=== PATIENT | male | born 2000 | race Caucasian/White ===

== ENCOUNTER → 2020-04-09 | Outpatient (CLI) | payer OTHER ==
--- NOTE | 2020-04-09 09:39 | Diagnostic Imaging Report ---
PROCEDURE: US Renal Bilateral. TECHNIQUE: Multiple Real-time grayscale images were obtained over the kidneys in various projections bilaterally. INDICATION: Chronic kidney disease, stage III. FINDINGS: The right kidney measures 9.8 x 5.5 x 4.8 cm and the left kidney measures 10.8 x 5.1 x 4.6 cm. The cortical thickness and echogenicity are normal bilaterally. No calculus or hydronephrosis is identified. The partially filled urinary bladder demonstrates bilateral ureteral jets. IMPRESSION: Unremarkable renal ultrasound. Dictated by: Dictated on workstation # [id number]
== END ==
LOC: RAD 08:40
PROVIDERS: ATTEND Internal Medicine Nephrology
DX: N18.3 Chronic kidney disease, stage 3 (moderate) (principal); D50.8 Other iron deficiency anemias; K50.90 Crohn's disease, unspecified, without complications
CPT/HCPCS: 76770

== ENCOUNTER → 2020-04-10 | Outpatient (CLI) | payer OTHER ==
[2020-04-10 16:56] LABS: BASOPHILS % (AUTO) 1 % (0-10); EOSINOPHILS # (AUTO) 0.3 10^3/uL (0.0-0.3); EOSINOPHILS % (AUTO) 3 % (0-10); HEMATOCRIT 48 % (40-54); HEMOGLOBIN 16.3 G/DL (13.3-17.7); LYMPHOCYTES # (AUTO) 2.4 X 10^3 (1.0-4.0); LYMPHOCYTES % (AUTO) 30 % (12-44); MEAN CORPUSCULAR HEMOGLOBIN 31 PG (25-34); MEAN CORPUSCULAR HGB CONC 34 G/DL (32-36); MEAN CORPUSCULAR VOLUME 91 FL (80-99); MEAN PLATELET VOLUME 10.9 FL (7.4-10.4); MONOCYTES # (AUTO) 0.7 X 10^3 (0.0-1.0); MONOCYTES % (AUTO) 9 % (0-12); NEUTROPHILS # (AUTO) 4.8 X 10^3 (1.8-7.8); NEUTROPHILS % (AUTO) 58 % (42-75); PLATELET COUNT 238 10^3/uL (130-400); RED CELL DISTRIBUTION WIDTH 12.8 % (10.0-14.5); WHITE BLOOD COUNT 8.2 10^3/uL (4.3-11.0)
[2020-04-10 17:16] LABS: URINE CREATININE FOR RATIO 102 MG/DL (30-125); URINE PROTEIN FOR RATIO ONLY < 6 MG/DL (6-12)
[2020-04-10 17:18] LABS: ALBUMIN 4.5 GM/DL (3.2-4.5); BUN/CREATININE RATIO 6; CALCIUM 9.4 MG/DL (8.5-10.1); CARBON DIOXIDE 27 MMOL/L (21-32); CHLORIDE 106 MMOL/L (98-107); CREATININE SERUM 1.22 MG/DL (0.60-1.30); GFR ESTIMATED > 60; GLUCOSE 77 MG/DL (70-105); PHOSPHORUS 4.2 MG/DL (2.3-4.7); POTASSIUM 4.2 MMOL/L (3.6-5.0); SODIUM 140 MMOL/L (135-145); URIC ACID 4.4 MG/DL (2.6-7.2)
== END ==
LOC: LAB 16:35
PROVIDERS: ATTEND Internal Medicine Nephrology
DX: N18.3 Chronic kidney disease, stage 3 (moderate) (principal); K50.90 Crohn's disease, unspecified, without complications; D50.9 Iron deficiency anemia, unspecified; D63.1 Anemia in chronic kidney disease
CPT/HCPCS: 36415; 80069; 82306; 82570; 83970; 84156; 84550; 85025

== ENCOUNTER 2021-07-23 19:14 | Day surgery (SDC) | payer OTHER ==
[~2021-07-23] VITALS: Ht 208.3 cm; Wt 97.6 kg
--- OUTSIDE RECORDS SUMMARY | 2021-07-23 19:19 | XMS REPORT | Clinical Summary ---
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 Active cyanocobalamin (VITAMIN TAKE 1 TABLET 11 B-12) 100 MCG tablet BY MOUTH ONCE 9 DAILY FOR 90 DAYS Active citalopram (CELEXA) 20 mg TAKE 1 TABLET 1 08/23 tablet BY MOUTH ONCE 9 DAILY IN THE MORNING Active zolpidem (AMBIEN) 5 MG Take 5 mg by 1 09/05/ 01 tablet mouth 9 nightly. Active cetirizine 10 mg cap Take by 0 mouth. Active fluticasone propionate Use 1 spray 0 (FLONASE) 50 in each mcg/actuation nasal spray nostril daily. Active inFLIXimab-abda Infuse into a 0 (RENFLEXIS) 100 mg venous SolRIndications: 5 weeks catheter. 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 Trunk and extremities The patient is reassured regarding the benign appearance of the lesion(s). If any changes should occur in the futu re, he is encouraged to have the lesion(s) rechecked at our office. Solar lentigo 09/20/2020 Overview: Formatting of this note might be differ ent from the original. Trunk and extremities The patient is reassured regarding the benign appearance of the lesion(s). If any changes should occur in the futu re, he is encouraged to have the lesion(s) rechecked at our office. 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 Problem Established Course Chronic Intervention Observation Physician Global Assessment Mild Cutaneous manifestations of photo-aging are present on the photo-exposed areas of the skin, distal BUEs, superio r chest/lateral neck, face. The presence of these changes to the sk in is due to chronic UVA and UVB exposure over years. These skin change s and the exposure to UV radiation which precipitated them confer a much h igher risk for non-melanoma and melanoma skin malignancies. The physic al manifestations mentioned above and in the exam portion of this note re present signs of a high, chronic dose of ultraviolet radiation, which co nfers significant risk for NMSC. Given this risk, I briefly discussed th e need for this patient to be vigilant in monitoring their skin for c hanging lesions and I have provided written education materials on skin can cer risk as well as recommendations on behavioral changes to diminish risk in spite of the past, high, chronic UV dose. These changes include sun ab idance/sun screen use as well as skin self monitoring. I have counseled the patient extensively on the increased risk for cutaneous malignanci es. This risk has informed my recommendatio ns on the frequency of total body skin exams by me for the purposes of sk in malignancy screening. Acne 09/20/2020 Last Assessment & Plan: Formatting of this note might be differ ent from the original. Face Back Moderate Offered benzaclin, tret Patient unbothered, will continue to mo nitor closely infliximab can precipitate folliculitis , on ddx Skin cancer screening 09/20/2019 Overview: Formatting of this note might be differ ent from the original. Given skin type and sun exposure on his tory and exam, increased risk for NMSC and MM. - sun protection discussed, detailed in structions provided - self skin checks, detailed instructio ns provided Multiple benign nevi 09/20/2019 Overview: Formatting of this note might be differ ent from the original. Trunk and extremities The patient is reassured regarding the benign appearance of the lesion(s). If any changes should occur in the futu re, he is encouraged to have the lesion(s) rechecked at our office. Stria 09/20/2019 Last Assessment & Plan: Formatting of this note might be differ ent from the original. Back reassurance Long-term use of high-risk medication 09/20/2019 Overview: Formatting of this note might be differ ent from the original. infliximab crohns 2017 L ast Assessment & Plan: Formatting of this note might be differ ent from the original. Complicates skin exam Increased r/o nmsc and MM Discussed at length with patient, encou raged self skin exams Crohn's colitis 09/20/2019 Overview: Formatting of this note might be differ ent from the original. On infliximab 2017 Doing well Treated by Dr. Sanchez Encounters Care Team Description Date Type Specialty Suyapa Elizabeth RN 07/01/2021 Telephone Dermatology from Last 3 Months Social History Date Tobacco Use Types Packs/Day Years Used Passive Smoke Exposure - Never Smoker Comments Alcohol Use Standard Drinks/Week No 0 (1 standard drink = 0.6 o z pure alcohol) Sex Assigned at Date Recorded Male 09/20/2019 11:16 AM CDT Last Filed Vital Signs Reading Time Taken Comments Vital Sign 123/80 09/20/2020 8:51 AM CDT Blood Pressure 97 09/20/2020 8:51 AM CDT Pulse 36.4 C (97.5 F) 09/20/2020 8:51 AM CDT Temperature 17 11/22/2016 9:37 PM PSYCHOLOGY INTERN Respiratory Rate 100% 11/22/2016 7:30 PM PSYCHOLOGY INTERN Oxygen Saturation - - Inhaled Oxygen Concentration 88.5 kg (195 lb) 09/20/2020 8:51 AM CDT Weight 188 cm (6' 2") 09/20/2019 9:48 AM CDT Height 25.04 09/20/2019 9:48 AM CDT Body Mass Index Plan of Treatment Care Team Description Date Type Specialty Tenzin Torres MD [address] [address] [phone] 09/23/2021 Office Visit Dermatology Health Maintenance Due Date Last Done Comments Td/Tdap# 1999 HPV Vaccine (1 - Male 2010 2-dose series) COVID-19 Vaccine (1) 2011 Influenza Vaccine (#1) 2021 07/25/2020, 08/18/2019, 08/18/2019, Additional history exists Pneumococcal Vaccine: 08/02/2024 08/02/2019, Pediatrics (0 to 5 Years) 03/25/2019, and At-Risk Patients (6 01/21/2001, to 64 Years) (3 of 4 - Additional PPSV23) history exists MCV4 Vaccine Aged Out No longer eligible based on patient's age to complete this topic Results Not on filefrom Last 3 Months Insurance Type Payer Benefit Subscriber ID Effective Phone Address Plan / Dates Group OTHER GOVERNMENT [id number] 2017-P [facility] [address] am[place] (Home) [place], [place] [address] Issa Salgado Personal/F Self 2000 [address]Home) [place], [place] [address] Advance Directives For more information, please contact: [phone] 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
--- OUTSIDE RECORDS SUMMARY | 2021-07-23 19:19 | XMS REPORT | Encounter Summary ---
Author Author [facility] Organization [facility] Address Unknown Phone Unavailable Care Team Providers Care Scrap Preparer Name Role Phone Joel Matias MD PCP Encounter Details Care Team Description Date Type Department Suyapa Elizabeth RN 07/01/2021 Telephone [facility] [address] [place] [address] Social History Date Tobacco Use Types Packs/Day Years Used Passive Smoke Exposure - Never Smoker Comments Alcohol Use Standard Drinks/Week No 0 (1 standard drink = 0.6 o z pure alcohol) Sex Assigned at Date Recorded Male 09/20/2019 11:16 AM CDT documented as of this encounter Miscellaneous Notes * Telephone Encounter - Suyapa Elizabeth RN - 07/01/2021 9:30 AM CDT Patient's mother LVM after hours over the weekend. Reporting patient has a lesio n on LUE that is red and has developed a "hard knot". States she believes lesion may be a spider bite. Patient's mother verbalizes redness is not growing outwar ds. Notified patient's mother lesion would need to be assessed in clinic by Dr. Torres or Tabitha. Discussed next available with Tabitha. Patient's mother states she does not want to wait. Discussed following up with PCP or convenient care. P michelle't billy verbalized understanding. documented in this encounter Plan of Treatment Care Team Description Date Type Specialty Tenzin Torres MD [address] [place] [address] 09/23/2021 Office Visit Dermatology documented as of this encounter Visit Diagnoses Not on filedocumented in this encounter
--- OUTSIDE RECORDS SUMMARY | 2021-07-23 19:20 | XMS REPORT | Clinical Summary ---
Author Author [facility] Organization [facility] Address Unknown Phone Unavailable Care Team Providers Care Maintenance Man Name Role Phone Sundar Sanchez PCP Source Comments Some departments are not documenting in the electronic medical record. If you d o not see the information that you expected, contact Release of Information in [facility] [employer] Information Management department at [phone] for further assistan ce in locating additional records.[facility] Allergies No Known Active Allergies Medications End Date Status Medication Sig Dispensed Refills Start Date Active citalopram (CELEXA) 20 mg Take 20 mg by 0 05/0 tablet mouth every 0 morning. Active zolpidem (AMBIEN) 5 mg Take 5 mg by 0 03/29/ 02 tablet mouth at 0 bedtime daily. Active inFLIXimab (REMICADE) 100 Administer 0 11/24 mg/10 mL injection 700 mg 7 through vein. Active cetirizine (ZYRTEC) 1 Take 10 mg by 0 mg/mL oral solution mouth as Needed. Active diphenhydrAMINE Take 25 mg by 0 (BENADRYL) 25 mg capsule mouth every 4 hours as needed. Active cholecalciferol (vitamin Take one 6 capsule 0 0 D3) (OPTIMAL D3) 50,000 capsule by 0 units capsule mouth every 7 days. Active pseudoephedrine (SUDAFED) Take 60 mg by 0 30 mg tablet mouth every 4 hours as needed for Congestion. Active ergocalciferol (vitamin Take one 6 capsule 0 D2) (VITAMIN D) 1,250 mcg capsule by 1 (50,000 unit) capsule mouth every 7 days. Active cholecalciferol (VITAMIN Take one 90 tablet 3 0 D3) 50 mcg (2,000 unit) tablet by 1 tablet mouth daily. Active Problems Problem Noted Date Healthcare maintenance 08/08/2020 Medication management 08/08/2020 Agitation 08/08/2020 Immunization counseling 08/08/2020 Crohn's disease of small intestine without complicati on 04/27/2020 Encounters Care Team Description Date Type Specialty Todd Crowley MD Crohn's disease of small intestine witho ut complication (HCC) (Primary Dx) 07/04/2021 Infusion Infusion 07/04/2021 Travel Todd Crowley MD Results (Labs) 06/12/2021 Telephone Gastroenterology Todd Crowley MD 06/05/2021 Hospital Lab Encounter Todd Crowley MD Crohn's disease of small intestine witho ut complication (HCC) (Primary Dx); Health care maintenance; Medication management; Personal history of immunosupression therapy 06/05/2021 Office Visit Gastroenterology 06/05/2021 Travel Todd Crowley MD Crohn's disease of small intestine witho ut complication (HCC) (Primary Dx) 05/30/2021 Infusion Infusion 05/30/2021 Travel Tracie Foreman RN 05/20/2021 Orders Only Gastroenterology Todd Crowley MD Crohn's disease of small intestine witho ut complication (HCC) (Primary Dx) 04/25/2021 Infusion Infusion 04/25/2021 Travel from Last 3 Months Surgical History Surgery Date Site/Laterality Comments COLONOSCOPY COLONOSCOPY 11/09/2020 N/A Colonoscopy per formed by Todd Crowley MD at [place] [address] OR Medical History Medical History Date Comments Crohn's disease (HCC) Family History Medical History Relation Name Comments Hypertension Father Cancer-Colon Maternal Grandfather Heart Disease Maternal Grandfather Cancer-Colon Maternal Grandmother Diabetes Mother Hypertension Mother Heart Disease Paternal Grandfather Stroke Paternal Grandfather Cancer Paternal Grandmother Relation Name Status Comments Father Alive Maternal Grandfather Maternal Grandmother Mother Alive Paternal Aunt Paternal Grandfather Paternal Grandmother Alive Paternal Uncle Alive Social History Date Tobacco Use Types Packs/Day Years Used Never Smoker Smokeless Tobacco: Never Used Comments Alcohol Use Standard Drinks/Week socially Yes 0 (1 standard drink = 0.6 o z pure alcohol) Alcohol Habits Answer Date Recorded How often do you have a drink containing alcohol? Never 04/25/2020 How many drinks containing alcohol do you have on No t asked a typical day when you are drinking? How often do you have six or more drinks on one Not asked occasion? 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 Last Filed Vital Signs Reading Time Taken Comments Vital Sign 120/66 07/04/2021 3:15 PM CDT Blood Pressure 89 07/04/2021 3:15 PM CDT Pulse 36.4 C (97.5 F) 07/04/2021 1:14 PM CDT Temperature 16 07/04/2021 1:14 PM CDT Respiratory Rate 99% 07/04/2021 1:14 PM CDT Oxygen Saturation - - Inhaled Oxygen Concentration 93.4 kg (206 lb) 07/04/2021 1:14 PM CDT Weight 188 cm (6' 2") 07/04/2021 1:14 PM CDT Height 26.45 07/04/2021 1:14 PM CDT Body Mass Index Plan of Treatment Health Maintenance Due Date Last Done Comments HPV VACCINES (1 - Male 2010 2-dose series) HIV SCREENING 2014 DTAP/TDAP VACCINES (1 - 2017 Tdap) HEPATITIS C SCREENING 2017 PHYSICAL (COMPREHENSIVE) 2017 EXAM INFLUENZA VACCINE 08/23/2021 MENINGOCOCCAL VACCINE Aged Out No longer eligib le based on patient's age to ([place]) complete this topic Procedures Comments Procedure Name Priority Date/Time Associated Diag nosis HC C-REACTIVE PROTEIN Routine 06/05/2021 Crohn's disease of small (CRP) 10:58 AM CDT intestine without complication (HCC) HC VITAMIN B12 Routine 06/05/2021 Crohn's disease of small 10:58 AM CDT intestine without complication (HCC) HC COMPREHENSIVE Routine 06/05/2021 Crohn's disea se of small METABOLIC PANEL 10:58 AM CDT intestine without complication (HCC) HC 25-OH VITAMIN D Routine 06/05/2021 Crohn's dis ease of small 10:58 AM CDT intestine without complication (HCC) HC CBC W/ AUTOMATED DIFF Routine 06/05/2021 Crohn 's disease of small 10:58 AM CDT intestine without complication (HCC) from Last 3 Months Results * 25-OH VITAMIN D (D2 + D3) (06/05/2021 10:58 AM CDT) Vitamin 23.8 (L) 30 - 80 NG/ML [facility] D(25-OH)Total Specimen Blood Performing Organization Address City/State/ZIP Code P adriano Number [facility] [address] [place] [address] * CBC AND DIFF (06/05/2021 10:58 AM CDT) White Blood 6.9 4.5 - 11.0 K/UL [facility] Cells RBC 5.23 4.4 - 5.5 M/UL [facility] Hemoglobin 16.2 13.5 - 16.5 GM/DL [facility] Hematocrit 48.3 40 - 50 % [facility] MCV 92.4 80 - 100 FL [facility] MCH 30.9 26 - 34 PG [facility] MCHC 33.5 32.0 - 36.0 G/DL [facility] RDW 13.2 11 - 15 % [facility] Platelet Count 227 150 - 400 K/UL [facility] MPV 9.2 7 - 11 FL [facility] Neutrophils 53 41 - 77 % [facility] Lymphocytes 30 24 - 44 % [facility] Monocytes 10 4 - 12 % [facility] Eosinophils 6 (H) 0 - 5 % [facility] Basophils 1 0 - 2 % [facility] Absolute 3.70 1.8 - 7.0 K/UL [facility] Neutrophil Count Absolute Lymph 2.06 1.0 - 4.8 K/UL [facility] Count Absolute 0.69 0 - 0.80 K/UL [facility] Monocyte Count Absolute 0.42 0 - 0.45 K/UL [facility] Eosinophil Count Absolute 0.06 0 - 0.20 K/UL [facility] Basophil Count Specimen Blood Performing Organization Address City/State/ZIP Code P adriano Number [facility] [address] [place] [address] * C REACTIVE PROTEIN (CRP) (06/05/2021 10:58 AM CDT) C-Reactive 0.07 <1.0 MG/DL [facility] Protein Specimen Blood Performing Organization Address City/State/ZIP Code P adriano Number [facility] [address] [place] [address] * VITAMIN B12 (06/05/2021 10:58 AM CDT) Vitamin B12 210 180 - 914 PG/ML [facility] Specimen Blood Performing Organization Address City/[facility]/ZIP Code P adriano Number [facility] [address] [place] [address] * COMPREHENSIVE METABOLIC PANEL (06/05/2021 10:58 AM CDT) Sodium 139 137 - 147 MMOL/L [facility] Potassium 3.8 3.5 - 5.1 MMOL/L [facility] Chloride 105 98 - 110 MMOL/L [facility] Glucose 110 (H) 70 - 100 MG/DL [facility] Blood Urea 10 7 - 25 MG/DL [facility] Nitrogen Creatinine 1.30 (H) 0.4 - 1.24 MG/DL [facility] Calcium 9.2 8.5 - 10.6 MG/DL [facility] Total Protein 7.4 6.0 - 8.0 G/DL [facility] Total Bilirubin 0.4 0.3 - 1.2 MG/DL [facility] Albumin 4.4 3.5 - 5.0 G/DL [facility] Alk Phosphatase 92 25 - 110 U/L [facility] AST (SGOT) 21 7 - 40 U/L [facility] CO2 23 21 - 30 MMOL/L [facility] ALT (SGPT) 33 7 - 56 U/L [facility] Anion Gap 11 3 - 12 [facility] eGFR Non >60 >60 mL/min [facility] Comment: [place] The eGFR is not validated f or use in drug dosing adjustments. Continue to use estimated creatinine clearance per dosing reference text. Please contact the Clinical Pharmacist for questions. eGFR >60 >60 mL/min [facility] [place] Comment: The eGFR is not validated for use in drug dosing adjustments. Continue to use estimated creatinine clearance per dosing reference text. Please contact the Clinical Pharmacist for questions. 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
--- OUTSIDE RECORDS SUMMARY | 2021-07-23 19:20 | XMS REPORT | Encounter Summary ---
Author Author [facility] Organization [facility] Address Unknown Phone Unavailable Care Team Providers Care Newspaper Vendor Name Role Phone Sundar Sanchez PCP Reason for Visit * Reason Comments Infusion Therapy * Treatment (Routine) Referred By Contact Referred To Contact Status Reason Specialty Diagnoses / Procedures [facility] Infusion [facility] [address] [place] [phone] [facility] [address] [place] [phone] Pending Review Infusion Diagnoses Crohn's disease of small intestine without complication (HCC) P rocedures 09-16 inFLIXimab (REMICADE) Encounter Details Care Team Description Date Type Department Todd Crowley MD [address] [place] [address] Crohn's disease of small intestine witho ut complication (HCC) (Primary Dx) 05/30/2021 Infusion Infusion Therapy: S outh [facility] 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 documented as of this encounter Last Filed Vital Signs Reading Time Taken Comments Vital Sign 122/66 05/30/2021 4:10 PM CDT Blood Pressure 62 05/30/2021 4:10 PM CDT Pulse 36.6 C (97.9 F) 05/30/2021 1:23 PM CDT Temperature 16 05/30/2021 1:23 PM CDT Respiratory Rate 97% 05/30/2021 1:23 PM CDT Oxygen Saturation - - Inhaled Oxygen Concentration 95.3 kg (210 lb 3.2 oz) 05/30/2021 1:23 PM CDT Weight 188 cm (6' 2") 05/30/2021 1:23 PM CDT Height 26.99 05/30/2021 1:23 PM CDT Body Mass Index documented in this encounter Functional Status Date of Assessment Functional Status Response 01/30/2021 Does the patient have a hearing impairment: No 01/30/2021 Does the patient have a visual impairment: No 01/30/2021 Does the patient have impaired ambulation: No 01/30/2021 Does the patient have an activity of daily living No (ADL) impairment: 01/30/2021 Does the patient have an instrumental activity of No daily living (IADL) impairment: Date of Assessment Cognitive Status Response 01/30/2021 Does the patient have a cognitive impairment: No documented as of this encounter Plan of Treatment Not on filedocumented as of this encounter Visit Diagnoses Diagnosis Crohn's disease of small intestine with out complication (HCC) - Primary Regional enteritis of small intestine documented in this encounter Administered Medications Action Date Dose Rate Site Medication Order MAR Action 05/30/2021 2:01 PM CDT 800 mg 330 mL/hr inFLIXimab (REMICADE) 800 mg in sodium Given - New chloride 0.9% (NS) 330 mL IVPB Bag 800 mg, Intravenous, 330 mL, Administer over 1 Hours, ONCE, 1 dose, On Arianne 05/30/21 at 1422, Flush IV site with 15-2 0 mL of NS after infusion. SPECIAL TUBING REQUIRED documented in this encounter Orders First Ordered Date Medications Ordered That Might Not Have Count Last Ordered Date Been Administered acetaminophen (TYLENOL EXTRA STRENGTH) 1 05/30/2021 tablet 500 mg diphenhydrAMINE (BENADRYL) capsule 25 mg 1 05/30/2021 First Ordered Date Nursing Count Last Ordered Date IMPLEMENT EXTRAVASATION MANAGEMENT 1 06/2021 IMPLEMENT GENERAL IV LINE FLUSH PROTOCOL 1 05/30/2021 IMPLEMENT HYPOGLYCEMIA IN THE PEDIATRIC 1 05/30/2021 PATIENT PROTOCOL IMPLEMENT HYPOGLYCEMIA MANAGEMENT OF 1 0 05/30/2021 ADULT PATIENTS PROTOCOL IMPLEMENT MEDICATION REACTION 1 05/30/20 21 ANAPHYLAXIS, AND HYPERSENSITIVITY MARINA C documented in this encounter Additional Health Concerns Assessment Noted Time A fall risk assessment has been completed for the pat ient 03/18/2021 2:53 PM CDT PHQ-2 Depression Total Score: 0 01/30/2021 10:00 AM MANAGER BIOSTATISTICS documented as of this encounter
--- OUTSIDE RECORDS SUMMARY | 2021-07-23 19:20 | XMS REPORT | Encounter Summary ---
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 documented as of this encounter Functional Status Date of Assessment Functional Status Response 06/05/2021 Does the patient have a hearing impairment: No 06/05/2021 Does the patient have a visual impairment: No 06/05/2021 Does the patient have impaired ambulation: No 06/05/2021 Does the patient have an activity of daily living No (ADL) impairment: 06/05/2021 Does the patient have an instrumental activity of No daily living (IADL) impairment: Date of Assessment Cognitive Status Response 06/05/2021 Does the patient have a cognitive impairment: No documented as of this encounter Plan of Treatment Not on filedocumented as of this encounter Visit Diagnoses Not on filedocumented in this encounter Additional Health Concerns Assessment Noted Time A fall risk assessment has been completed for the pat ient 06/05/2021 10:29 AM CDT PHQ-2 Depression Total Score: 0 06/05/2021 10:29 AM CDT documented as of this encounter
--- OUTSIDE RECORDS SUMMARY | 2021-07-23 19:20 | XMS REPORT | Encounter Summary ---
Author Author [facility] Organization [facility] Address Unknown Phone Unavailable Care Team Providers Care Steam Bone Press Tender Name Role Phone Sundar Sanchez DO PCP Encounter Details Care Team Description Date Type Department Todd Crowley MD [address] [place] [address] 06/05/2021 Hospital Laboratory: Sheila Varela [facility] 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 04/30/2020 cholecalciferol (vitamin Take one 6 capsule 0 D3) (OPTIMAL D3) 50,000 capsule by units capsule mouth every 7 days. 03/29/2020 citalopram (CELEXA) 20 mg Take 20 mg by 0 tablet mouth every morning. diphenhydrAMINE Take 25 mg by 0 (BENADRYL) 25 mg capsule mouth every 4 hours as needed. 12/17/2016 inFLIXimab (REMICADE) 100 Administer 0 mg/10 mL injection 700 mg through vein. pseudoephedrine (SUDAFED) Take 60 mg by 0 30 mg tablet mouth every 4 hours as needed for Congestion. 03/29/2020 zolpidem (AMBIEN) 5 mg Take 5 mg by 0 tablet mouth at bedtime daily. documented as of this encounter Discharge Disposition Code Departure Means Destination Disposition Home Home or Self Care documented in this encounter Progress Notes * Todd Crowley MD - 06/05/2021 11:40 AM CDT Please can you provide the patient with vit d prescription Thx documented in this encounter Plan of Treatment Not on filedocumented as of this encounter Procedures Comments Procedure Name Priority Date/Time Associated Diag nosis HC 25-OH VITAMIN D Routine 06/05/2021 Crohn's dis ease of small 10:58 AM CDT intestine without complication (HCC) HC CBC W/ AUTOMATED DIFF Routine 06/05/2021 Crohn 's disease of small 10:58 AM CDT intestine without complication (HCC) HC C-REACTIVE PROTEIN Routine 06/05/2021 Crohn's disease of small (CRP) 10:58 AM CDT intestine without complication (HCC) HC VITAMIN B12 Routine 06/05/2021 Crohn's disease of small 10:58 AM CDT intestine without complication (HCC) HC COMPREHENSIVE Routine 06/05/2021 Crohn's disea se of small METABOLIC PANEL 10:58 AM CDT intestine without complication (HCC) documented in this encounter Results * C REACTIVE PROTEIN (CRP) (06/05/2021 10:58 AM CDT) C-Reactive 0.07 <1.0 MG/DL [facility] Protein Specimen Blood Performing Organization Address City/State/ZIP Code P adriano Number [facility] [address] [place] [address] * VITAMIN B12 (06/05/2021 10:58 AM CDT) Vitamin B12 210 180 - 914 PG/ML [facility] Specimen Blood Performing Organization Address City/[facility] P adriano Number [facility] [address] [place] [address] * COMPREHENSIVE METABOLIC PANEL (06/05/2021 10:58 AM [...] >60 >60 mL/min [facility] Comment: [place] The eGFR is not validated f or use in drug dosing adjustments. Continue to use estimated creatinine clearance per dosing reference text. Please contact the Clinical Pharmacist for questions. eGFR >60 >60 mL/min [facility] [place] Comment: The eGFR is not validated for use in drug dosing adjustments. Continue to use estimated creatinine clearance per dosing reference text. Please contact the Clinical Pharmacist for questions. Specimen Blood Performing Organization Address City/State/ZIP Code P adriano Number [facility] [address] [place] [address] * 25-OH VITAMIN D (D2 + D3) (06/05/2021 10:58 AM CDT) Vitamin 23.8 (L) 30 - 80 NG/ML [facility] D(25-OH)Total Specimen Blood Performing Organization Address [facility] P adriano Number [facility] [address] [place] [address] * CBC AND DIFF (06/05/2021 10:58 AM CDT) Pathologist [facility] White Blood 6.9 4.5 - 11.0 K/UL [...] Basophil Count Specimen Blood Performing Organization Address City/[facility]/ZIP Code P adriano Number [facility] [address] [place] [address] documented in this encounter Visit Diagnoses Diagnosis Crohn's disease of small intestine with out complication (HCC) Regional enteritis of small intestine documented in this encounter Additional Health Concerns Assessment Noted Time A fall risk assessment has been completed for the pat ient 06/05/2021 10:29 AM CDT PHQ-2 Depression Total Score: 0 06/05/2021 10:29 AM CDT documented as of this encounter
--- OUTSIDE RECORDS SUMMARY | 2021-07-23 19:20 | XMS REPORT | Encounter Summary ---
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
--- OUTSIDE RECORDS SUMMARY | 2021-07-23 19:20 | XMS REPORT | Encounter Summary ---
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
--- OUTSIDE RECORDS SUMMARY | 2021-07-23 19:20 | XMS REPORT | Encounter Summary ---
Author Author [facility] Organization [facility] Address Unknown Phone Unavailable Care Team Providers Care Grain Wafer Machine Operator Name Role Phone Sundar Sanchez PCP Reason for Visit * Reason Comments Crohn's Disease * Consult, Test & Treat (Routine) Referred By Contact Referred To Contact Status Reason Specialty Diagnoses / Procedures Todd Crowley MD [address] [place] [address] Authorized Gastroenterology Diagnoses swp appt ok 8.6.20 6:15,DARA RTC 3MOS MASTER CHANGE BMP 9.2 P rocedures SPECIALTY RETURN Encounter Details Care Team Description Date Type Department Todd Crowley MD [address] [place], [place] [id number] Crohn's disease of small intestine witho ut complication (HCC) (Primary Dx); Health care maintenance; Medication management; Personal history of immunosupression therapy 06/05/2021 Office Visit Gastroenterology: Obdulio Dowell, [facility] 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 documented as of this encounter Last Filed Vital Signs Reading Time Taken Comments Vital Sign 129/75 06/05/2021 10:28 AM CDT Blood Pressure 92 06/05/2021 10:28 AM CDT Pulse 36.7 C (98.1 F) 06/05/2021 10:28 AM CDT Temperature 18 06/05/2021 10:28 AM CDT Respiratory Rate 98% 06/05/2021 10:28 AM CDT Oxygen Saturation - - Inhaled Oxygen Concentration 94.7 kg (208 lb 12.8 oz) 06/05/2021 10:28 AM CDT Weight 187.3 cm (6' 1.75") 06/05/2021 10:28 AM CDT Height 26.99 06/05/2021 10:28 AM CDT Body Mass Index documented in this [...] impairment: No documented as of this encounter Patient Instructions * Patient Instructions* Tracie Foreman RN - 06/05/2021 10:30 AM CDT 1. Labs today and stool testing. 2. Return to Gi clinic in 3 months. As part of the CARES act, starting February 21 some results are released to you au tomatically. Your provider will continue to send you a detailed result note on a ny labs that they order, but with these changes you may see your results before they do. Critical lab results will be addressed immediately, but otherwise pleas e give your provider 72 hours (3 business days) to view and respond to your resu lts before reaching out with any questions. Depending on your questions, they ma y ask you to schedule a telehealth or telephone visit to discuss further. This v isit may be billed to your insurance depending on time and complexity. If you have any questions or concerns please contact Dr. Crowley's nurse, Tracie, at [phone]. If you have internet access/smart phone please contact us through [employer]. This is the most efficient way to contact your healthcare team. If you have any questions or concerns regarding your medications, please contact the IBD Pharmacists at [phone] or e-mail [email or web address]. [facility] Locations: [place], [facility] [address] [place] [address], 1st floor, directly to the left [place] [address] At [facility] and [facility] adjacent to [facility] spital [phone] 7 a.m.-6 p.m. Thursday-Thursday 7 a.m.-noon Thursday [facility] [address] [place] [address] 8 a.m.4:30 p.m. Thursday-Thursday [facility] [address] [place] [address] 8 a.m.-5 p.m. Thursday-Thursday [facility] [address] [place] [address] 7 a.m.-5:30 p.m. Thursday-Thursday [facility] [address] [place] [address] 8 a.m.-4:30 p.m. Thursday-Thursday Locations are closed all major holidays (excluding ). documented in this encounter Progress Notes * Todd Crowley MD - 06/05/2021 10:30 AM CDT IMPRESSION: 20-year-old male PMH significant for ileocolonic Crohn's disease, currently on i nfliximab every 5 weeks (since 2015), here for follow-up clinic visit. 1. Stricturing ileocolonic Crohn's disease Initially diagnosed in 2016 and has done relatively well on infliximab infusions , however has had increasing frequency. Most recently colonoscopy performed 2019 with 3 ulcerations, 2 in the transverse colon and one in the descending col on with a normal-appearing terminal ileum. Infliximab drug levels 12/2020 were 1 9, which were adequate. He currently is in clinical remission however with mild endoscopic and histologic disease activity. 2. Immunosuppressed status Patient is up-to-date on influenza, pneumococcal vaccinations. He has not yet r eceived the Covid vaccine. We again had detailed discussion with the patient and Mom , patient has persist ent mild residual endoscopic disease but he continues to be in clinical And bi ochemical remission .They were off the opinion as the patient remains asymptomat ic and the endoscopy showed significant improvement on IFx so they would prefer to stay on IFX , I agree with this plan but will closely follow up with pt with fecal calpro and MRI and then repeat colonoscopy in 1 year RECOMMENDATIONS: The patient elects to proceed with a longer trial of infliximab to see if there is improvements on imaging or endoscopy. - continue IFx side effects including risk of infections , lymphoma and lymphopr oliferative disorders were discussed If not Allergic Flu vaccine - Every year. Pneumococcal Pneumonia Prevention-PCV13 followed by PPSV23 after 2 months. If e patient get PPSV23 first then wait for 1 year before PCV13. PPSV23 needs to be repeated once after 5 years. Herpes Zoster Vaccination- Patient 50 yrs and older should get the New Recombina nt Vaccine (Shingrix) . Hepatitis B series at 0,2 and 6 months (If not immunized). Avoid Live virus vaccines. Colorectal cancer Screening- Patient needs a surveillance colonoscopy every 2 ye ars after 8 yrs of colonic disease. Screening for cervical cancer(women)- Every year Regular Dermatology Follow up- Specially if on Thiopurines (Preferably once ever y year) Bone Health- Patients with risk factor should undergo Bone Mineral density testi ng at the time of diagnosis and periodically there after. Smoking cessation. Avoiding NSAIDs and opiates. Reason for Visit: Crohn's disease follow-up HPI: Overall patient states that he is doing quite well at this juncture. He states that he is having semiformed to soft bowel movements 1 to 2/day. Continues to be in clinical remission Last endoscopy showed 3 superficial ulcer in the colon after that we checked IFx levels which were adequate We discussed a ll these findings with the patient and his Mom , he still mild endoscopic diseas e the options include switching Vs continuing with IFx and hopeing these ulcers improve in near future History of the disease: Patient is a 19-year-old male with very long and complex past medical history of Crohn's disease. He presents today to establish care with this clinic. He is a former patient of Dr. Mcmanus. He provides much of his medical history although we have detailed records within [facility]. His symptoms began in October 2016 and presented with sore throat and fever. Margret hickman was found to be anemic and had hemoglobin of 7.3. He was then set up for an E GD and colonoscopy that showed a normal-looking endoscopy but: Anoscopy had infl ammatory polyp and scattered ulcers throughout. His EGD biopsy showed chronic g astritis, ileitis that was so's that was severe and pancolitis. His treatment w as initiated with Remicade after CMV was ruled out. At that time, and MR Brittany show ed pancolitis with no small bowel inflammation. His methotrexate was then stopp ed due to a rising creatinine. In November 09, 2017, he underwent a subsequent EGD and colonoscopy. The esophagus and duodenum looked good,, but there is mild chronic gastritis. 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 Those biopsies revealed eosinophilia. There is a lso active colitis throughout the colon. He had an upper GI bowel small series to consider surgery for the stricture. There was some segmental thickening of t he sort stricture terminal ileum associated with nodularity. He did not have a stricture dilation of the ileum as the right colon was also slightly nodular. Mragret hickman was started on steroids and Remicade was escalated to 700 mg every 4 weeks. T his was started in November 2017. His last MR enterography was in November 2016 wh ich mainly showed colonic involvement. In June 2019, another EGD and colonosc opy was completed that showed visual erosions at the duodenal bulb and scaly arvin thema in the body of the stomach and mild scattered colitis starting at 40 cm. The sigmoid most most severely affected. There is also a small cecal polyp and a 1 cm sigmoid polyp removed. Pathology with right-sided colitis, mild inflamma tion of transverse colon and eosinophilia of the colon rectosigmoid colon. The polyp was benign but an inflammatory polyp. Remicade was increased to 800 mg ev arvin 5 weeks at that time. In July 2019, he was doing well from a GI standpo int and only had mild right-sided colitis. Patient today comes to the clinic to establish care along with his mother , ayla pruitt doing really well. Having one to 2 formed BMs ,no blood , no nocturnal sympt oms . His last IFx dose was March 22 , q5 weeks , due this Thursday No joint pains , no rashes , No EIMs PMH: Medical History: Diagnosis Date Crohn's disease (HCC) PSH: Surgical History: Procedure Laterality Date Colonoscopy N/A 11/09/2020 Performed by Todd Crowley MD at [place] [address] OR COLONOSCOPY Current Medications: Current Outpatient Medications: cetirizine (ZYRTEC) 1 mg/mL oral solution, Take 10 mg by mouth as Needed., Disp: , Rfl: cholecalciferol (vitamin D3) (OPTIMAL D3) 50,000 units capsule, Take one ca psule by mouth every 7 days., Disp: 6 capsule, Rfl: 0 citalopram (CELEXA) 20 mg tablet, Take 20 mg by mouth every morning., Disp: , Rfl: diphenhydrAMINE (BENADRYL) 25 mg capsule, Take 25 mg by mouth every 4 hours as needed., Disp: , Rfl: inFLIXimab (REMICADE) 100 mg/10 mL injection, Administer 700 mg through vei n., Disp: , Rfl: pseudoephedrine (SUDAFED) 30 mg tablet, Take 60 mg by mouth every 4 hours a s needed for Congestion., Disp: , Rfl: zolpidem (AMBIEN) 5 mg tablet, Take 5 mg by mouth at bedtime daily., Disp: , Rfl: Allergies: No Known Allergies SHx: Social History Tobacco Use Smoking status: Never Smoker Smokeless tobacco: Never Used Substance Use Topics Alcohol use: Yes Comment: socially Drug use: Never FHx: Family History Problem Relation Age of Onset Diabetes Mother Hypertension Mother Hypertension Father Cancer-Colon Maternal Grandmother Cancer-Colon Maternal Grandfather Heart Disease Maternal Grandfather Cancer Paternal Grandmother Heart Disease Paternal Grandfather Stroke Paternal Grandfather Depression Screening: Patient Scores: PHQ-2: PHQ-2 Score: 0 (06/05/2021 10:29 AM) PHQ-9: No data recorded Interventions: PHQ-2: PHQ-2 Score less than 3: No follow-up or recommendations are necessary at this time (06/05/2021 10:29 AM) Depression Interventions PHQ-2/9: No data recorded ROS: Review of Systems Constitutional: Negative. HENT: Negative. Eyes: Negative. Respiratory: Negative. Cardiovascular: Negative. Gastrointestinal: Negative. Endocrine: Negative. Genitourinary: Negative. Musculoskeletal: Negative. Skin: Negative. Allergic/Immunologic: Negative. Neurological: Negative. Hematological: Negative. Psychiatric/Behavioral: Negative. PE: Vitals: 06/05/21 1028 BP: 129/75 Pulse: 92 Resp: 18 Temp: 36.7 C (98.1 F) SpO2: 98% 94.7 kg (208 lb 12.8 oz) Body mass index is 26.99 kg/m. Physical Exam Constitutional: Pt. is oriented to person, place, and time and in no distress. HENT: Head: Normocephalic and atraumatic. Eyes: Conjunctivae and EOM are normal. Neck: Normal range of motion. Neck supple. Cardiovascular: Normal rate, regular rhythm by pulse only. Warm extremities. Pulmonary/Chest: Effort normal and breath sounds normal. No respiratory distress . Speaking in full sentences. Abdominal: Soft. Pt. exhibits no distension and no mass. There is no tenderness. There is no rebound and no guarding. Musculoskeletal: Normal range of motion. There is no edema, tenderness or deform ity. Neurological: Pt. is alert and oriented to person, place, and time. Gait normal. Skin: Skin is warm and dry. No rash noted. No erythema. Psychiatric: Affect and judgment normal. documented in this encounter Plan of Treatment Order Schedule Name Type Priority Associated Diag noses Expected: 06/05/2021 (Approximate), Expi res: 06/05/2022 CALPROTECTIN, FECAL Lab Routine Crohn's di sease of small intestine without complication (HCC) documented as of this encounter Results * C REACTIVE PROTEIN (CRP) (06/05/2021 10:58 AM CDT) C-Reactive 0.07 <1.0 MG/DL [facility] Protein Specimen Blood Performing Organization Address City/[facility]/ZIP Code P adriano Number [facility] [address] [place] [address] * VITAMIN B12 (06/05/2021 10:58 AM CDT) Vitamin B12 210 180 - 914 PG/ML [facility] Specimen Blood Performing Organization Address City/[facility]/ZIP Code P adriano Number [facility] [address] [place] [address] * COMPREHENSIVE METABOLIC PANEL (06/05/2021 10:58 AM [...] >60 >60 mL/min [facility] Comment: [place] The eGFR is not validated f or use in drug dosing adjustments. Continue to use estimated creatinine clearance per dosing reference text. Please contact the Clinical Pharmacist for questions. eGFR >60 >60 mL/min [facility] [place] Comment: The eGFR is not validated for use in drug dosing adjustments. Continue to use estimated creatinine clearance per dosing reference text. Please contact the Clinical Pharmacist for questions. Specimen Blood Performing Organization Address City/[facility]/ZIP Code P adriano Number [facility] [address] [place] [address] * 25-OH VITAMIN D (D2 + D3) (06/05/2021 10:58 AM CDT) Vitamin 23.8 (L) 30 - 80 NG/ML [facility] D(25-OH)Total Specimen Blood Performing Organization Address [facility] Code P adriano Number [facility] [address] [place] [address] * CBC AND DIFF (06/05/2021 10:58 AM [...] Basophil Count Specimen Blood Performing Organization Address [facility]/ZIP Code P adriano Number [facility] [address] [place] [address] documented in this encounter Visit Diagnoses Diagnosis Crohn's disease of small intestine with out complication (HCC) - Primary Regional enteritis of small intestine Health care maintenance Unspecified general medical examination Medication management Encounter for long-term (current) use o f other medications Personal history of immunosupression th erapy Personal history of immunosuppressive t herapy documented in this encounter Additional Health Concerns Assessment Noted Time A fall risk assessment has been completed for the pat ient 06/05/2021 10:29 AM CDT PHQ-2 Depression Total Score: 0 06/05/2021 10:29 AM CDT documented as of this encounter
--- OUTSIDE RECORDS SUMMARY | 2021-07-23 19:20 | XMS REPORT | Encounter Summary ---
Author Author [facility] Organization [facility] Address Unknown Phone Unavailable Care Team Providers Care Senior Investment Analyst Name Role Phone Sundar Sanchez PCP Reason for Visit * Reason Onset Date Comments Results 06/12/2021 Labs Encounter Details Care Team Description Date Type Department Todd Crowley MD [address] [place] [address] Results (Labs) 06/12/2021 Telephone Gastroenterology: Obdulio Dowell, [facility] 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 06/12/2021 ergocalciferol (vitamin Take one 6 capsule 0 D2) (VITAMIN D) 1,250 mcg capsule by (50,000 unit) capsule mouth every 7 days. documented in this encounter Miscellaneous Notes * Telephone Encounter - Laxmi Gonzalez RN - 06/12/2021 9:54 AM CDT Low vit d levels , we recommend Vit D 50,000IU once per week for 6 weeks Then 2000IU once daily Orders placed per above recommendations. Patient notified via Liquid [employer]. * Telephone Encounter - Laxmi Gonzalez RN - 06/12/2021 9:54 AM CDT ----- Message from Todd Crowley MD sent at 06/06/2021 4:27 PM CDT ----- Please can you provide the patient with [...]
--- OUTSIDE RECORDS SUMMARY | 2021-07-23 19:20 | XMS REPORT | Encounter Summary ---
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 [place] [phone] [facility]fusion [facility] [address] [place] [phone] Pending Review Infusion Diagnoses Crohn's disease of small intestine without complication (HCC) P rocedures 09-16 inFLIXimab (REMICADE) Encounter Details Care Team Description Date Type Department Todd Crowley MD [address] [place] [address] Crohn's disease of small intestine witho ut complication (HCC) (Primary Dx) 07/04/2021 Infusion Infusion Therapy: [facility] 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 documented in this encounter Plan of Treatment Not on filedocumented as of this encounter Visit Diagnoses Diagnosis Crohn's disease of small intestine with out complication (HCC) - Primary Regional enteritis of small intestine documented in this encounter Administered Medications Action Date Dose Rate Site Medication Order MAR Action 07/04/2021 2:15 PM CDT 800 mg 330 mL/hr inFLIXimab (REMICADE) 800 mg in sodium Given - New chloride 0.9% (NS) 330 mL IVPB Bag 800 mg, Intravenous, 330 mL, Administer over 1 Hours, ONCE, 1 dose, On Arianne 07/04/21 at 1414, Flush IV site with 15-20 mL of NS after infusion. SPECIAL TUBING REQUIRED documented in this encounter Orders First Ordered Date Medications Ordered That Might Not Have Count Last Ordered Date Been Administered inFLIXimab (REMICADE) 800 mg in sodium 1 07/04/2021 chloride 0.9% (NS) 330 mL IVPB First Ordered Date Nursing Count Last Ordered Date IMPLEMENT EXTRAVASATION MANAGEMENT 1 10/2021 IMPLEMENT GENERAL IV LINE FLUSH PROTOCOL 1 07/04/2021 IMPLEMENT HYPOGLYCEMIA IN THE PEDIATRIC 1 07/04/2021 PATIENT PROTOCOL IMPLEMENT HYPOGLYCEMIA MANAGEMENT OF 1 0 07/04/2021 ADULT PATIENTS PROTOCOL IMPLEMENT MEDICATION REACTION 1 07/04/20 21 ANAPHYLAXIS, AND HYPERSENSITIVITY MARINA C documented in this encounter Additional Health Concerns Assessment Noted Time A fall risk assessment has been completed for the pat ient 06/05/2021 10:29 AM CDT PHQ-2 Depression Total Score: 0 06/05/2021 10:29 AM CDT documented as of this encounter
--- NOTE | 2021-07-23 19:27 | ED Abdominal Pain ---
General Chief Complaint: Abdominal/GI Problems Stated Complaint: ABD PAIN Source of Information: Patient Exam Limitations: No Limitations (KRISTIE SOUTH APRN) History of Present Illness Date Seen by Provider: Jul 23, 2021 Time Seen by Provider: 19:15 Initial Comments This is a well-appearing 21-year-old male who presents to the ER via POV with acute appendicitis. States that he was seen at [place] urgent [facility] and referred to the [place] ER where he had a CT scan of his abdomen. CT indicated acute appendicitis, so they referred him to the emergency department here. States pain began around 930 this morning when he woke, started in his mid abdominal region and has since localized into his right lower quadrant. States pain is a constant, 8/10, stabbing pain. Worse with sitting up or moving. He has vomited 4 times today. Last intake was at 0930 this morning where he ate breakfast, drank a little bit of milk around 1230 this afternoon. Nothing by mouth since. Has not taken any medications prior to arrival. Denies history of drug, tobacco, alcohol use. Has history of Crohn's Disease. Does Remicaide infusions every 5 weeks. No prior surgeries. (KRISTIE SOTUH APRN) Allergies and Home Medications Allergies Coded Allergies: No Known Drug Allergies (Unverified , 07/23/21) Patient Home Medication List Home Medication List Reviewed: Yes (KRISTIE SOUTH APRN) Review of Systems Review of Systems Constitutional: chills, fever EENTM: No Symptoms Reported Respiratory: No Symptoms Reported Cardiovascular: No Symptoms Reported Gastrointestinal: See HPI, Abdominal Pain, Nausea, Poor Appetite Genitourinary: No Symptoms Reported Musculoskeletal: no symptoms reported Skin: no symptoms reported Psychiatric/Neurological: No Symptoms Reported Endocrine: No Symptoms Reported Hematologic/Lymphatic: No Symptoms Reported (KRISTIE SOUTH APRN) Physical Exam Vital Signs Vital Signs - First Documented 07/23/21 19:18 Temp 36.1 Pulse 94 Resp 18 B/P (MAP) 146/90 (108) Pulse Ox 99 O2 Delivery Room Air (DAMIAN FERGUSON MD) Vital Signs Capillary Refill : (KRISTIE SOUTH APRN) Height/Weight/BMI Height: '" Weight: lbs. oz. 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, alert, normal mood/affect, oriented x 3 Skin: normal color, warm/dry (KRISTIE SOUTH APRN) Progress/Results/Core Measures Results/Orders Lab Results Laboratory Tests Test 07/23/21 19:23 07/23/21 19:35 Range/Units White Blood Count 21.2 H 4.3-11.0 10^3/uL Red Blood Count 5.52 4.30-5.52 10^6/uL Hemoglobin 17.0 13.3-17.7 g/dL Hematocrit 51 40-54 % Mean Corpuscular Volume 93 80-99 fL Mean Corpuscular Hemoglobin 31 25-34 pg Mean Corpuscular Hemoglobin Concent 33 32-36 g/dL Red Cell Distribution Width 11.8 10.0-14.5 % Platelet Count 286 130-400 10^3/uL Mean Platelet Volume 10.6 9.0-12.2 fL Immature Granulocyte % (Auto) 1 % Neutrophils (%) (Auto) 90 H 42-75 % Lymphocytes (%) (Auto) 5 L 12-44 % Monocytes (%) (Auto) 5 0-12 % Eosinophils (%) (Auto) 0 0-10 % Basophils (%) (Auto) 0 0-10 % Neutrophils # (Auto) 19.0 H 1.8-7.8 10^3/uL Lymphocytes # (Auto) 1.0 1.0-4.0 10^3/uL Monocytes # (Auto) 1.0 0.0-1.0 10^3/uL Eosinophils # (Auto) 0.0 0.0-0.3 10^3/uL Basophils # (Auto) 0.1 0.0-0.1 10^3/uL Immature Granulocyte # (Auto) 0.1 0.0-0.1 10^3/uL Neutrophils % (Manual) 90 % Lymphocytes % (Manual) 4 % Monocytes % (Manual) 4 % Band Neutrophils 1 % Atypical Lymphocytes 1 % Blood Morphology Comment NORMAL Sodium Level 139 135-145 MMOL/L Potassium Level 4.1 3.6-5.0 MMOL/L Chloride Level 104 98-107 MMOL/L Carbon Dioxide Level 23 21-32 MMOL/L Anion Gap 12 5-14 MMOL/L Blood Urea Nitrogen 7 7-18 MG/DL Creatinine 1.38 H 0.60-1.30 MG/DL Estimat Glomerular Filtration Rate 64 BUN/Creatinine Ratio 5 Glucose Level 122 H 70-105 MG/DL Calcium Level 10.2 H 8.5-10.1 MG/DL Corrected Calcium 8.5-10.1 MG/DL Total Bilirubin 0.7 0.1-1.0 MG/DL Aspartate Amino Transf (AST/SGOT) 25 5-34 U/L Alanine Aminotransferase (ALT/SGPT) 55 0-55 U/L Alkaline Phosphatase 110 40-136 U/L Total Protein 8.5 H 6.4-8.2 GM/DL Albumin 4.9 H 3.2-4.5 GM/DL Urine Color YELLOW Urine Clarity CLEAR Urine pH 5.5 5-9 Urine Specific [place] 1.010 L 1.016-1.022 Urine Protein NEGATIVE NEGATIVE Urine Glucose (UA) NEGATIVE NEGATIVE Urine Ketones TRACE H NEGATIVE Urine Nitrite NEGATIVE NEGATIVE Urine Bilirubin NEGATIVE NEGATIVE Urine Urobilinogen 0.2 < = 1.0 MG/DL Urine Leukocyte Esterase NEGATIVE NEGATIVE Urine RBC (Auto) NEGATIVE NEGATIVE Urine RBC NONE /HPF Urine WBC NONE /HPF Urine Crystals PRESENT H /LPF Urine Amorphous Sediment RARE GLENN URATES H /LPF Urine Bacteria NEGATIVE /HPF Urine Casts NONE /LPF Urine Mucus NEGATIVE /LPF Urine Culture Indicated NO (DAMIAN FERGUSON MD) Vital Signs/I&O 07/23/21 19:18 Temp 36.1 Pulse 94 Resp 18 B/P (MAP) 146/90 (108) Pulse Ox 99 O2 Delivery Room Air (DAMIAN FERGUSON MD) Diagnostic Imaging Diagonstic Imaging: CT Plain Films/CT/US/NM/MRI: abdomen Comments [facility] [place] NAME: BETSY SMILEY [facility] REC#: [id number] PT STATUS: REG CLI : 2000 PHYSICIAN: VELMA SCHOFIELD APRN ADMIT DATE: 07/23/21/ITA FS Signed Date of Exam:07/23/21 CT ABDOMEN/PELVIS W EXAMINATION: CT abdomen and pelvis with intravenous contrast. TECHNIQUE: Multiple contiguous axial images were obtained through the abdomen and pelvis after the uneventful administration of intravenous contrast. All CT scans use one or more of the following dose optimizing techniques: automated exposure control, MA and/or KvP adjustment based on patient size and exam type or iterative reconstruction. HISTORY: Abdominal pain. COMPARISON: None available. FINDINGS: Limited views of the lower thorax are unremarkable. The liver is normal without focal lesion. There is no biliary ductal dilation. Gallbladder is normal. Pancreas is normal. Spleen is normal. Adrenal glands are normal. The kidneys are normal. There is no hydronephrosis. Urinary bladder is normal. There is acute appendicitis. The appendix is dilated measuring 10 mm with mild surrounding stranding. 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 There are a few adjacent mildly enlarged lymph nodes in the right lower quadrant. No free fluid or air. No abdominal or pelvic lymphadenopathy. Aorta is normal in caliber without aneurysm. There are no suspicious osseous lesions. IMPRESSION: 1. Acute appendicitis without abscess or perforation. 2. Age-indeterminate focus of epiploic appendagitis of the cecum. Extensive efforts were made to contact Velma Schofield APRN, and a message was left with Dr. Almeida with no call back, so I called the patient and suggested he go to the [facility] as the [facility] ER was closed. Dictated by: Dictated on workstation # [id number] Dict: 07/23/211701 Trans: 07/23/211838 [facility] [id number] Interpreted by: PAULA EDDY MD Electronically signed by: PAULA EDDY MD 07/23/211838 Reviewed: Reviewed by Me (KRISTIE SOUTH APRN) Departure Communication (Admissions) Time/Spoke to Admitting Phy: 19:[address] Méndez. 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 Family Conversation Discussed plan with patient and mother. They are agreeable with plan. No questions/concerns voiced about procedure. (KRISTIE SOUTH APRN) Impression Primary Impression: Appendicitis Disposition: ADMITTED INPATIENT Condition: Stable Admissions Decision to Admit Reason: Admit from ER (General) Decision to Admit/Date: Jul 23, 2021 Time/Decision to Admit Time: 19:35 (KRISTIE SOUTH APRN) Departure-Patient Inst. Referrals: PRICILLA ALMEIDA DO (PCP/Family) Primary Care Physician ATTENDING PHYSICIAN NOTE: I was physically present as attending physician in the emergency department during the care of this patient, but I was not directly involved in the decision making or delivery of care for this patient. (DAMIAN FERGUSON MD) KRISTIE SOUTH APRN Jul 23, 2021 19:27 DAMIAN FERGUSON MD Jul 24, 2021 08:26
[2021-07-23 19:35] LABS: BASOPHILS # (AUTO) 0.1 10^3/uL (0.0-0.1); BASOPHILS % (AUTO) 0 % (0-10); EOSINOPHILS % (AUTO) 0 % (0-10); HEMATOCRIT 51 % (40-54); LYMPHOCYTES % (AUTO) 5 % (12-44); MEAN CORPUSCULAR HEMOGLOBIN 31 pg (25-34); MEAN CORPUSCULAR HGB CONC 33 g/dL (32-36); MEAN CORPUSCULAR VOLUME 93 fL (80-99); MEAN PLATELET VOLUME 10.6 fL (9.0-12.2); MONOCYTES % (AUTO) 5 % (0-12); NEUTROPHILS % (AUTO) 90 % (42-75); PLATELET COUNT 286 10^3/uL (130-400); WHITE BLOOD COUNT 21.2 10^3/uL (4.3-11.0)
[2021-07-23 19:40] LABS: BILIRUBIN,URINE NEGATIVE (NEGATIVE); CLARITY,URINE CLEAR; COLOR,URINE YELLOW; GLUCOSE, URINE (UA) NEGATIVE (NEGATIVE); KETONES,URINE TRACE (NEGATIVE); LEUKOCYTE ESTERASE ,URINE NEGATIVE (NEGATIVE); NITRITE,URINE NEGATIVE (NEGATIVE); PH,URINE 5.5 (5-9); PROTEIN,URINE NEGATIVE (NEGATIVE)
[2021-07-23 19:55] LABS: ALANINE AMINOTRANSFERASE 55 U/L (0-55); ALBUMIN 4.9 GM/DL (3.2-4.5); ALKALINE PHOSPHATASE 110 U/L (40-136); BILIRUBIN,TOTAL 0.7 MG/DL (0.1-1.0); BUN/CREATININE RATIO 5; CALCIUM 10.2 MG/DL (8.5-10.1); CARBON DIOXIDE 23 MMOL/L (21-32); CHLORIDE 104 MMOL/L (98-107); CREATININE SERUM 1.38 MG/DL (0.60-1.30); GFR ESTIMATED 64; GLUCOSE 122 MG/DL (70-105); POTASSIUM 4.1 MMOL/L (3.6-5.0); SODIUM 139 MMOL/L (135-145); TOTAL PROTEIN 8.5 GM/DL (6.4-8.2)
[2021-07-23 20:09] LABS: AMORPHOUS SEDIMENT,UR RARE AMOR URATES /LPF; BACTERIA,URINE NEGATIVE /HPF
--- NOTE | 2021-07-23 20:17 | History & Physical-Surgical ---
DELICIA HERNÁNDEZ 07/23/21 2017: History of Present Illness History of Present Illness Reason for visit/HPI Patient is a 21 year old male who presented to emergency room from [place] with acute appendicitis. Patient woke up this morning with periumbilical abdominal pain that slowly grew in size and intensity. The pain is now all across his abdomen and he rates it an 8/10 at rest. Patient went to see his PCP in [place] this afternoon, who sent him to the hospital to have a CT scan done. CT findings were consistent with acute appendicitis without perforation. Patient states nothing makes his pain better, but moving or flexing his abdomen makes the pain worse. Patient does have a positive McBurney's sign and a positive rebound sign. Patient denies fever and chills. Patient does have Nausea and an episode of vomiting upon arrival to ER in [place]. Patient does have Crohn's disease that is managed by his physician from . Patient understands he will be undergoing appendectomy and wishes to proceed. 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 Tobacco Use?: No Smoking Status: Never a Smoker Substance use?: No Alcohol Use?: Yes Alcohol Frequency: Rarely Immunizations Up To Date First/Initial COVID19 Vaccinat: 03/09/2021 Second COVID19 Vaccination Jhony: 04/06/2021 Current Status Advance Directives: No Communicates: Verbally Primary Language: Hungarian Preferred Spoken Language: Hungarian Is interpretation needed?: No Implanted or Applied Medical D: None Past Medical History Crohns Disease (managed by physician at ) Review of Systems Constitutional: No chills, No fever Respiratory: No cough, No short of breath Cardiovascular: No chest pain, No palpitations Gastrointestinal: abdominal pain (RLQ. LLQ), nausea, vomiting Genitourinary: No dysuria, No frequency Skin: No change in color Physical Exam Vital Signs Vital Signs - First Documented 07/23/21 19:18 Temp 36.1 Pulse 94 Resp 18 B/P (MAP) 146/90 (108) Pulse Ox 99 O2 Delivery Room Air Capillary Refill : Less Than 3 Seconds Height, Weight, BMI Height: '" Weight: lbs. oz. kg; 21.00 BMI Method: General Appearance: No Apparent Distress, WD/WN, Anxious HEENT: PERRL/EOMI Neck: Non Tender, Supple Respiratory: Normal Breath Sounds, No Accessory Muscle Use, No Respiratory Distress Cardiovascular: Regular Rate, Rhythm, Normal Peripheral Pulses Gastrointestinal: Rebound, Tenderness (RLQ and LLQ) Extremity: Normal Capillary Refill, No Calf Tenderness, No Pedal Edema Neurologic/Psychiatric: Alert, Oriented x3, Normal Mood/Affect Skin: Normal Color, Warm/Dry Lymphatic: No Adenopathy Data Review Labs Laboratory Tests 07/23/21 19:23: White Blood Count 21.2H, Red Blood Count 5.52, Hemoglobin 17.0, Hematocrit 51, Mean Corpuscular Volume 93, Mean Corpuscular Hemoglobin 31, Mean Corpuscular Hemoglobin Concent 33, Red Cell Distribution Width 11.8, Platelet Count 286, Mean Platelet Volume 10.6, Immature Granulocyte % (Auto) 1, Neutrophils (%) (Auto) 90H, Lymphocytes (%) (Auto) 5L, Monocytes (%) (Auto) 5, Eosinophils (%) (Auto) 0, Basophils (%) (Auto) 0, Neutrophils # (Auto) 19.0H, Lymphocytes # (Auto) 1.0, Monocytes # (Auto) 1.0, Eosinophils # (Auto) 0.0, Basophils # (Auto) 0.1, Immature Granulocyte # (Auto) 0.1, Sodium Level 139, Potassium Level 4.1, Chloride Level 104, Carbon Dioxide Level 23, Anion Gap 12, Blood Urea Nitrogen 7, Creatinine 1.38H, Estimat Glomerular Filtration Rate 64, BUN/Creatinine Ratio 5, Glucose Level 122H, Calcium Level 10.2H, Corrected Calcium , Total Bilirubin 0.7, Aspartate Amino Transf (AST/SGOT) 25, Alanine Aminotransferase (ALT/SGPT) 55, Alkaline Phosphatase 110, Total Protein 8.5H, Albumin 4.9H 07/23/21 19:35: Urine Color YELLOW, Urine Clarity CLEAR, Urine pH 5.5, Urine Specific [place] 1.010L, Urine Protein NEGATIVE, Urine Glucose (UA) NEGATIVE, Urine Ketones TRACEH, Urine Nitrite NEGATIVE, Urine Bilirubin NEGATIVE, Urine Urobilinogen 0.2, Urine Leukocyte Esterase NEGATIVE, Urine RBC (Auto) NEGATIVE, Urine RBC NONE, Urine WBC NONE, Urine Crystals PRESENTH, Urine Amorphous Sediment RARE GLENN URATESH, Urine Bacteria NEGATIVE, Urine Casts NONE, Urine Mucus NEGATIVE, Urine Culture Indicated NO Assessment/Plan Assessment/Plan Admission Diagonsis Acute Appendicitis Admission Status: Other (Same Day Surgery) Assessment/Plan Assessment: Acute Appendicitis Plan: Laparoscopic Appendectomy - Discussed risks/benefits with patient, patient understands wish to proceed Pain management as needed GARY MÉNDEZ DO 07/23/212050: History of Present Illness History of Present Illness Reason for visit/HPI CC: periumbilical abd pain. 21 male 930 this am periumbilical abd pain. then migrated lower abdomen mostly right side. Deep achy pain. 07/02. Moving makes worse. Laying down not moving better. Patient had ct consistent with acute appendicitis. Nausea and emesis. Denies fever sweats chills shortness of breath or chest pain. Allergies and Home Medications Allergies Coded Allergies: No Known Drug Allergies (Unverified , 07/23/21) Patient Home Medication List Home Medication List Reviewed: Yes Past Vjrvfyt-Xsyudh-Irguoj Hx Patient Social History Tobacco Use?: No Substance use?: No Alcohol Use?: No Past Medical History Crohns Disease (managed by physician at ) Family Medical History No Pertinent Family Hx Review of Systems Constitutional: No chills, No fever Respiratory: No cough, No short of breath Cardiovascular: No chest pain, No palpitations Gastrointestinal: abdominal pain (RLQ), nausea, vomiting Genitourinary: No dysuria, No frequency Musculoskeletal: No back pain, No joint pain Skin: No change in color, No change in hair/nails Psychiatric/Neurological: Denies Anxiety, Denies Depressed, Denies Emotional Problems All Other Systems Reviewed Negative Unless Noted: Yes (Negative excepted noted.) Physical Exam General Appearance: No Apparent Distress, WD/WN, Anxious HEENT: PERRL/EOMI, Normal ENT Inspection Neck: Non Tender, Supple Respiratory: Chest Non Tender, No Accessory Muscle Use, No Respiratory Distress Cardiovascular: Regular Rate, Rhythm, No JVD Gastrointestinal: Soft, Tenderness (RLQ ) Rectal: Deferred Back: No CVA Tenderness, No Vertebral Tenderness Extremity: Normal Capillary Refill, Non Tender, No Calf Tenderness Neurologic/Psychiatric: Alert, Oriented x3, Normal Mood/Affect Skin: Normal Color, Warm/Dry Lymphatic: No Adenopathy Assessment/Plan Assessment/Plan Admission Diagonsis Acute Appendicitis RLQ abdominal pain Nausea and vomiting Admission Status: Other (Same Day Surgery) Assessment/Plan Acute Appendicitis RLQ abdominal pain Nausea and vomiting Laparoscopic Appendectomy - Discussed risks/benefits with patient and mother, patient understands wish to proceed Pain management as needed NPO Ancef/Flagyl IV Fluids To OR Supervisory-Addendum Brief Verification & Attestation Participated in pt care: history, MDM, physical Personally performed: exam, history, MDM, supervision of care Care discussed with: Medical Student Procedures: n/a Results interpretation: Verified all documentation Verification and Attestation of Medical Student E/M Service A medical student performed and documented this service in my presence. I reviewed and verified all information documented by the medical student and made modifications to such information, when appropriate. I personally performed the physical exam and medical decision making. Gary Méndez, Jul 23, 2021,20:55 DELICIA HERNÁNDEZ Jul 23, 2021 20:17 GARY MÉNDEZ DO Jul 23, 2021 20:51
[2021-07-23] MEDS ORDERED: ONDANSETRON 4 MG/2 ML (SDV) Z0FRAN ONE ×2 (20:19→21:03)
[2021-07-23] MEDS ORDERED: ROCURONIUM 10 MG/ML 5 ML SYRINGE IV ONE (20:19)
[2021-07-23] MEDS ORDERED: SEVOFLURANE (ULTANE) 15 ML INHAL SOLN ONE ×3 (20:19→21:44)
[2021-07-23] MEDS ORDERED: proPOfol 200 MG/20 ML (DIPRIVAN) VIAL IV ONE (20:19)
[2021-07-23] MEDS ORDERED: LIDOCAINE PF 2% 5 ML (XYLOCAINE) VIAL ONE (20:19)
[2021-07-23] MEDS ORDERED: MIDAZOLAM 2 MG/2 ML (VERSED) VIAL ONE (20:19)
[2021-07-23] MEDS ORDERED: fentaNYL INJ 100 MCG/2 ML AMP ONE (20:20)
[2021-07-23] MEDS ORDERED: LIDOCAINE/EPI 1%-1:100,000 (XYLOCAINE) 20ML ONE (20:24)
[2021-07-23 20:26] LABS: ATYPICAL LYMPHOCYTES 1 %; BAND NEUTROPHILS 1 %; LYMPHOCYTES % (MANUAL) 4 %; MONOCYTES % (MANUAL) 4 %; NEUTROPHILS % (MANUAL) 90 %; RBC MORPH NORMAL
[2021-07-23] MEDS ORDERED: metroNIDAZOLE 500MG/100ML IVPB 100 ML ONE (20:50)
[2021-07-23] MEDS ORDERED: ceFAZolin 2 GM IV Premixed 50 ML ONE (20:50)
[2021-07-23] MEDS ORDERED: HYDROmorphone 2 MG/ML VIAL (DILAUDID) ONE (21:02)
[2021-07-23] MEDS ORDERED: MEPERIDINE (DEMEROL) INJ 50 MG/ML ONE ×2 (21:04→21:33)
[2021-07-23] MEDS ORDERED: GLYCOPYRROLATE 0.2 MG/ML (ROBINUL) 2 ML VIAL ONE (21:28)
[2021-07-23] MEDS ORDERED: NEOSTIGMINE 3 MG/3 ML VIAL ONE (21:28)
[2021-07-23] MEDS ORDERED: KETOROLAC 30 MG/ML VIAL ONE (21:30)
[2021-07-23] MEDS ORDERED: morphine INJ 4 MG/ML 1 ML (VIAL/SYRINGE) IVP PRN (21:45)
[2021-07-23] MEDS ORDERED: ONDANSETRON 4 MG/2 ML (SDV) Z0FRAN IVP PRN ×2 (21:45→22:00)
[2021-07-23] MEDS ORDERED: HYDROcodone/APAP 5 MG/325 MG (LORTAB) TAB PO PRN (21:45)
--- NOTE | 2021-07-23 21:47 | Progress Note-Post Operative ---
Post-Operative Progess Note Surgeon (s)/Duck Farmer (s) Surgeon GARY AGUILAR DO Duck Farmer: na Pre-Operative Diagnosis acute appendicitis Post-Operative Diagnosis acute appendicitis Procedure & Operative Findings Date of Procedure 07/23/21 Procedure Performed/Findings PROCEDURE: Laparoscopic appendectomy. COMPLICATIONS: None. INDICATIONS: The patient is a 21 year old male who has been having right lower quadrant abdominal pain. Patient's exam consistent with appendicitis. I discussed risk and benefits of laparoscopic appendectomy and all indicated procedures with the possibility being a normal appendix. The patient understands the risks and benefits and wishes to proceed. Consent was signed on the chart. DESCRIPTION OF PROCEDURE: The patient was taken to the operating suite, prepped and draped in a sterile fashion. Timeout was performed. Local anesthetic was infiltrated just above the umbilicus and 11-blade scalpel was used to make a skin incision. Cautery was used to dissect down to the fascia and scored. Kochers were used to grasp and elevate it and the abdomen was then entered. A 0 Vicryl was placed in a [id number] fashion for closure at the end of the case. The balloon trocar was inserted into the abdomen and pneumoperitoneum was achieved. Under direct visualization of the laparoscope, a 5 mm trocar was placed in the suprapubic region and a 5 mm trocar was placed in the left lower quadrant. Appendix was located, Inflamed dilated appendix. The base of the appendix was dissected around. Once at the base an Endo-LOLLY 2.5 stapler was then fired across the base of the appendix. This was after mesoappendix was divided with ligasure. It was then placed in an Endobag and removed through the 12 mm trocar site. The abdomen was then irrigated and suctioned. No other pathology noted. The abdomen was then desufflated and the trocars were removed. The 0 Vicryl placed at the beginning of the case was then tied closing the 12 mm fascial defect. The skin was then closed using 4-0 Monocryl in a subcuticular fashion. The abdomen was then washed and dried and Skin Affix was placed over the incisions. The patient tolerated the procedure well without any complications and was taken to the recovery room in stable condition. Anesthesia Type general Estimated Blood Loss Estimated blood loss (mL): minimal Specimens/Packing Specimens Removed appendix GARY AGUILAR DO Jul 23, 2021 21:46
[2021-07-23 21:52] VITALS: BP 122/63
[2021-07-23 22:00] VITALS: BP 114/53
[2021-07-23] MEDS ORDERED: HYDROmorphone 2 MG/ML VIAL (DILAUDID) IV ONE (22:00)
[2021-07-23 22:10] VITALS: BP 110/57
[2021-07-23 22:20] VITALS: BP 110/56
[2021-07-23 22:30] VITALS: BP 109/54
[2021-07-23 22:40] VITALS: BP 103/54
[2021-07-24] MEDS: LACTATED RINGERS 1,000 ML IV SCH ×3 (00:19→12:02)
[2021-07-24 00:36] VITALS: BP 117/68
[2021-07-24 04:14] VITALS: BP 106/65
[2021-07-24] MEDS: ceFAZolin 2 GM IV Premixed 50 ML IV SCH ×2 (05:45→12:02)
[2021-07-24] MEDS: metroNIDAZOLE 500MG/100ML IVPB 100 ML IV SCH ×2 (05:46→13:04)
--- NOTE | 2021-07-24 07:24 | Progress Note - Surgery ---
KYLIE PORTER 07/24/21 0723: Subjective Date Seen by a Provider: Jul 24, 2021 Time Seen by a Provider: 08:00 Subjective/Events-last exam S/P appendectomy pt resting well with ice pack over incision areas. Reports minimal abdominal pain with no guarding. On clear liquid diet and last bowel movement yesterday. Able to walk to the bathroom with no problems. Denies fever, chills, vomiting, diarrhea, nausea, or chest pain. Incision site nonbloody and nonpurulent with some bruising. Overall seems to have healed well. Pt currently on Ancef for antibiotic and IV fluids. Review of Systems General: No Chills, No Night Sweats, No Fatigue HEENT: No Head Aches, No Visual Changes, No Ear Pain Pulmonary: No Dyspnea, No Cough Cardiovascular: No: Chest Pain, Palpitations, Edema Gastrointestinal: Abdominal Pain (minimal diffuse); No: Nausea, Vomiting, Diarrhea Genitourinary: No Dysuria, No Frequency, No Incontinence Musculoskeletal: No: neck pain, back pain, leg pain Neurological: No: Weakness, Numbness, Seizures Objective Exam Vital Signs Date Time Temp Pulse Resp B/P (MAP) Pulse Ox O2 Delivery O2 Flow Rate FiO2 07/24/21 04:14 37.2 88 18 106/65 (79) 99 Room Air 07/24/21 00:36 36.6 67 16 117/68 (84) 98 Room Air 07/23/21 22:40 Room Air 07/23/21 22:40 37.4 20 103/54 (70) 95 Room Air 07/23/21 22:30 20 109/54 (72) 96 Room Air 07/23/21 22:30 Room Air 07/23/21 22:20 20 110/56 (74) 97 OxyMask 3 07/23/21 22:15 OxyMask 3 07/23/21 22:10 20 110/57 (74) 97 OxyMask 6 07/23/21 22:00 OxyMask 6 07/23/21 22:00 16 114/53 (73) 96 OxyMask 6 07/23/21 21:52 OxyMask 6 07/23/21 21:52 38.0 16 122/63 (82) 97 OxyMask 6 07/23/21 20:43 94 20 132/80 (97) 97 Room Air 07/23/21 19:18 36.1 94 18 146/90 (108) 99 Room Air I & O 07/24/21 07:00 Intake Total 510 ml Output Total 75 ml Balance 435 ml Capillary Refill : Less Than 3 SecondsLess Than 3 Seconds General Appearance: No Apparent Distress, WD/WN HEENT: PERRL/EOMI Neck: Normal Inspection, Non Tender, Supple Respiratory: Chest Non Tender, Lungs Clear, Normal Breath Sounds, No Accessory Muscle Use, No Respiratory Distress Cardiovascular: Regular Rate, Rhythm Peripheral Pulses: 2+ Radial Pulses (R), 2+ Radial Pulses (L) Gastrointestinal: normal bowel sounds, soft; No guarding; tenderness (Diffuse ) Extremity: Non Tender Neurologic/Psychiatric: Alert, Oriented x3, No Motor/Sensory Deficits, Normal Mood/Affect Skin: Normal Color, Warm/Dry Results Lab Laboratory Tests 07/23/21 19:23: White Blood Count 21.2H, Red Blood Count 5.52, Hemoglobin 17.0, Hematocrit 51, Mean Corpuscular Volume 93, Mean Corpuscular Hemoglobin 31, Mean Corpuscular Hemoglobin Concent 33, Red Cell Distribution Width 11.8, Platelet Count 286, Mean Platelet Volume 10.6, Immature Granulocyte % (Auto) 1, Neutrophils (%) (Auto) 90H, Lymphocytes (%) (Auto) 5L, Monocytes (%) (Auto) 5, Eosinophils (%) (Auto) 0, Basophils (%) (Auto) 0, Neutrophils # (Auto) 19.0H, Lymphocytes # (Auto) 1.0, Monocytes # (Auto) 1.0, Eosinophils # (Auto) 0.0, Basophils # (Auto) 0.1, Immature Granulocyte # (Auto) 0.1, Neutrophils % (Manual) 90, Lymphocytes % (Manual) 4, Monocytes % (Manual) 4, Band Neutrophils 1, Atypical Lymphocytes 1, Blood Morphology Comment NORMAL, Sodium Level 139, Potassium Level 4.1, Chloride Level 104, Carbon Dioxide Level 23, Anion Gap 12, Blood Urea Nitrogen 7, Creatinine 1.38H, Estimat Glomerular Filtration Rate 64, BUN/Creatinine Ratio 5, Glucose Level 122H, Calcium Level 10.2H, Corrected Calcium , Total Bilirubin 0.7, Aspartate Amino Transf (AST/SGOT) 25, Alanine Aminotransferase (ALT/SGPT) 55, Alkaline Phosphatase 110, Total Protein 8.5H, Albumin 4.9H 8/31/21 19:35: Urine Color YELLOW, Urine Clarity CLEAR, Urine pH 5.5, Urine Specific Theresa 1.010L, Urine Protein NEGATIVE, Urine Glucose (UA) NEGATIVE, Urine Ketones TRACEH, Urine Nitrite NEGATIVE, Urine Bilirubin NEGATIVE, Urine Urobilinogen 0.2, Urine Leukocyte Esterase NEGATIVE, Urine RBC (Auto) NEGATIVE, Urine RBC NONE, Urine WBC NONE, Urine Crystals PRESENTH, Urine Amorphous Sediment RARE GLENN URATESH, Urine Bacteria NEGATIVE, Urine Casts NONE, Urine Mucus NEGATIVE, Urine Culture Indicated NO Assessment/Plan Assessment/Plan Assessment/Plan Acute Appendicitis RLQ abdominal pain Nausea and vomiting s/p Laparoscopic Appendectomy - Discussed risks/benefits with patient and mother, patient understands wish to proceed Pain management as needed Clear liquid diet Ancef/Flagyl IV Fluids JUAN LUIS MÉNDEZ DO 07/24/21 1343: Subjective Subjective/Events-last exam Pain controlled. Tolerating diet. Feeling better. No fever sweats chills shortness of breath or chest pain. No n/v. Objective Exam General Appearance: No Apparent Distress, WD/WN HEENT: PERRL/EOMI Neck: Normal Inspection, Non Tender, Supple Respiratory: Chest Non Tender, No Accessory Muscle Use, No Respiratory Distress Cardiovascular: Regular Rate, Rhythm, No JVD Gastrointestinal: normal bowel sounds, soft, tenderness (incisional, c/d/i) Extremity: Non Tender Neurologic/Psychiatric: Alert, Oriented x3, No Motor/Sensory Deficits, Normal Mood/Affect Skin: Normal Color, Warm/Dry Lymphatic: No Adenopathy Assessment/Plan Assessment/Plan Assessment/Plan Acute Appendicitis RLQ abdominal pain Nausea and vomiting s/p Laparoscopic Appendectomy Pain management as needed diet as tolerates dc home Supervisory-Addendum Brief Verification & Attestation Participated in pt care: history, MDM, physical Personally performed: exam, history, MDM, supervision of care Care discussed with: Medical Student Procedures: n/a Results interpretation: Verified all documentation Verification and Attestation of Medical Student E/M Service A medical student performed and documented this service in my presence. I reviewed and verified all information documented by the medical student and made modifications to such information, when appropriate. I personally performed the physical exam and medical decision making. Juan Luis Méndez, Jul 24, 2021,13:45 KYLIE PORTER Jul 24, 2021 07:23 JUAN LUIS MÉNDEZ DO Jul 24, 2021 13:43
[2021-07-24 08:00] VITALS: BP 137/82
--- NOTE | 2021-07-24 11:22 | Anesthesia-General Post-Op ---
General Patient Condition Mental Status/LOC: Same as Preop Cardiovascular: Satisfactory Nausea/Vomiting: Absent Respiratory: Satisfactory Pain: Controlled Complications: Absent Post Op Complications Complications None Follow Up Care/Instructions Patient Instructions None needed. Anesthesia/Patient Condition Patient Condition Patient is doing well, no complaints, stable vital signs, no apparent adverse anesthesia problems. No complications reported per nursing. SILVIO EDWARDS CRNA Jul 24, 2021 11:22
[2021-07-24 12:00] VITALS: BP 121/72
[2021-07-24] MEDS ORDERED: DOCU-143 PO (13:50)
[2021-07-24] MEDS ORDERED: ACHD5005 PO (13:50)
--- NOTE | 2021-07-24 13:51 | Discharge Inst-Simple/Standard ---
Discharge Inst-Standard Discharge Medications New, Converted or Re-Newed RX: Transmitted to Pharmacy Patient Instructions/Follow Up Plan of Care/Instructions/FU: 2 weeks Dev Activity as Tolerated: No Discharge Diet: Regular Diet Other Inst to Patient Follow up Appt: Make appointment for 2 week. Instructions: No lifting greater than 10 pounds. No strenuous activity. May shower in 24 hours, no tub bath or soaking. Use incentive spirometer at home as directed. No Smoking Skin/Wound Care: You have special glue over your incision that will fall off on it's own. Symptoms to Report: Appetite Changes, Extremity Discoloration, Numbness/Tingling, Swelling Increased, Bleeding Excessive, Eyesight Changes, Pain Increased, Urine Color Change, Constipation(Persistent), Fever over 101 degree F, Pain/Pressure in chest, Urinating Difficulty, Cough Up/Vomit Blood, Heart Beat Irreg/Pounding, Pain/Pressure in jaw, Vaginal Bleeding Increase, Cramps in feet or legs, Lightheadedness, Pain/Pressure in shoulder, Diarrhea(Persistent), Memory Changes Suddenly, Questions/Concerns, Weight gain consecutive days, Dizziness/Fainting, Nausea/Vomiting, Shortness of Breath, Weight gain over 2 pounds If questions or concerns contact your physician Or seek help at emergency department. GARY AGUILAR DO Jul 24, 2021 13:51
[2021-07-24 15:31] VITALS: BP 121/72
== END 2021-07-24 15:30 | disposition home or self-care (01) ==
LOC: EDUNIT# 19:14 → ER 19:17 → SDC 20:01 → 4TH 20:01 → UNDOADMOB 21:45 → SDC 07-24 15:30 → UNDODISOB 07-24 15:30
PROVIDERS: ATTEND Surgery
DX: K35.80 Unspecified acute appendicitis (principal); K50.90 Crohn's disease, unspecified, without complications; Z79.899 Other long term (current) drug therapy
CPT/HCPCS: 36415; 80053; 81000; 85007; 85027

== ENCOUNTER → 2021-07-23 | Outpatient (CLI) | payer OTHER ==
[~2021-07-23] MED LIST: ACHD5005 PO; CATHETER FLUSH 10 ML SYR IV PRN; DOCU-143 PO; HOLD METFORMIN - RECEIVED CONTRAST 20 ML VIAL IV SCH; IOHEXOL 350 MG/ML 100 ML (OMNIPAQUE 350) VIAL IV ONE; NS 100 ML (IVPB) BAG IV ONE
--- NOTE | 2021-07-23 18:17 | Diagnostic Imaging Report ---
EXAMINATION: CT abdomen and pelvis with intravenous contrast. TECHNIQUE: Multiple contiguous axial images were obtained through the abdomen and pelvis after the uneventful administration of intravenous contrast. All CT scans use one or more of the following dose optimizing techniques: automated exposure control, MA and/or KvP adjustment based on patient size and exam type or iterative reconstruction. HISTORY: Abdominal pain. COMPARISON: None available. FINDINGS: Limited views of the lower thorax are unremarkable. The liver is normal without focal lesion. There is no biliary ductal dilation. Gallbladder is normal. Pancreas is normal. Spleen is normal. Adrenal glands are normal. The kidneys are normal. There is no hydronephrosis. Urinary bladder is normal. There is acute appendicitis. The appendix is dilated measuring 10 mm with mild surrounding stranding. 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 There are a few adjacent mildly enlarged lymph nodes in the right lower quadrant. No free fluid or air. No abdominal or pelvic lymphadenopathy. Aorta is normal in caliber without aneurysm. There are no suspicious osseous lesions. IMPRESSION: 1. Acute appendicitis without abscess or perforation. 2. Age-indeterminate focus of epiploic appendagitis of the cecum. Extensive efforts were made to contact Velma Bullard APRN, and a message was left with Dr. Sanchez with no call back, so I called the patient and suggested he go to the [facility] as the [facility] ER was closed. Dictated by: Dictated on workstation # [id number]
== END ==
LOC: RAD FS 16:08
PROVIDERS: ATTEND Nurse Practitioner Family
DX: K37 Unspecified appendicitis (principal); K63.89 Other specified diseases of intestine
CPT/HCPCS: 74177